=== PATIENT | female | born 1965 | race Caucasian/White ===

== ENCOUNTER 2020-11-28 22:50 | Emergency (ER) | payer BC ==
[2020-11-29 00:09] LABS: HEMOGLOBIN 14.6 gm/dl (12.3-15.3); RED BLOOD COUNT 4.85 M/UL (4.00-5.10); WHITE BLOOD COUNT 9.7 K/UL (4.5-11.0)
[2020-11-29 00:30] LABS: BUN/CREATININE RATIO 24 (0-10)
== END 2020-11-29 03:36 | disposition home or self-care (01) ==
LOC: ER1 22:50
PROVIDERS: Physician Assistant
DX: R07.9 Chest pain, unspecified (principal); J45.909 Unspecified asthma, uncomplicated; Z87.440 Personal history of urinary (tract) infections
CPT/HCPCS: 71045; 80053; 82550; 82553; 83874; 83880; 84484; 85025; 85610; 85730; 93005; 99285